=== PATIENT | male | born 1990 | race Caucasian/White ===

== ENCOUNTER 2016-12-07 18:43 | Emergency (ER) | payer OTHER ==
[~2016-12-07] VITALS: Ht 182.8 cm; Wt 127.0 kg
[2016-12-07] MEDS ORDERED: LISINOPRIL40 MG PO (18:59)
== END 2016-12-07 20:18 | disposition home or self-care (01) ==
LOC: ED 18:43
DX: S06.0X0A Concussion without loss of consciousness, initial encounter (principal); S00.03XA Contusion of scalp, initial encounter; R03.0 Elevated blood-pressure reading, without diagnosis of hypertension; W17.89XA Other fall from one level to another, initial encounter; Y93.89 Activity, other specified; Y92.9 Unspecified place or not applicable; Y99.9 Unspecified external cause status

== ENCOUNTER 2019-05-14 13:39 | Emergency (ER) | payer OTHER ==
[~2019-05-14] VITALS: Ht 180.3 cm; Wt 129.3 kg
[~2019-05-14 13:39] MED LIST: LISINOPRIL40 MG PO
[2019-05-14] MEDS ORDERED: NAPROSYN500 MG PO (14:37)
[2019-05-14] MEDS ORDERED: MEDROL DOSEPAK4 MG PO (14:37)
[2019-05-14] MEDS ORDERED: METHOCARBAMOL500 M1 PO (14:37)
== END 2019-05-14 14:45 | disposition home or self-care (01) ==
LOC: ED 13:39
DX: S39.012A Strain of muscle, fascia and tendon of lower back, initial encounter (principal); Z79.899 Other long term (current) drug therapy; X50.1XXA Overexertion from prolonged static or awkward postures, initial encounter; Y93.89 Activity, other specified; Y92.89 Other specified places as the place of occurrence of the external cause; Y99.9 Unspecified external cause status

== ENCOUNTER 2019-07-04 17:17 | Emergency (ER) | payer OTHER ==
[~2019-07-04] VITALS: Ht 182.8 cm; Wt 129.3 kg
[~2019-07-04 17:17] MED LIST changes: +MEDROL DOSEPAK4 MG PO; +METHOCARBAMOL500 M1 PO; +NAPROSYN500 MG PO
== END 2019-07-04 20:15 | disposition home or self-care (01) ==
LOC: ED 17:17
DX: A08.4 Viral intestinal infection, unspecified (principal); I10 Essential (primary) hypertension; Z79.899 Other long term (current) drug therapy

== ENCOUNTER 2019-08-08 12:19 | Emergency (ER) | payer OTHER ==
[~2019-08-08] VITALS: Ht 182.8 cm; Wt 129.3 kg
[2019-08-08] MEDS ORDERED: AUGMENTIN 875-875 MG PO (13:20)
[2019-08-08] MEDS ORDERED: FLONASE ALLERG9.9 ML NAS (13:20)
[2019-08-08] MEDS ORDERED: ALLEGRA ALLERG180 M2 PO (13:20)
== END 2019-08-08 13:22 | disposition home or self-care (01) ==
LOC: ED 12:19
DX: J01.90 Acute sinusitis, unspecified (principal); J02.9 Acute pharyngitis, unspecified; Z79.899 Other long term (current) drug therapy

== ENCOUNTER 2021-01-12 14:12 | Emergency (ER) | payer OTHER ==
[~2021-01-12] VITALS: Ht 182.8 cm; Wt 135.2 kg
[~2021-01-12 14:12] MED LIST changes: +ALLEGRA ALLERG180 M2 PO; +AUGMENTIN 875-875 MG PO; +FLONASE ALLERG9.9 ML NAS
== END 2021-01-12 15:45 | disposition home or self-care (01) ==
LOC: ED 14:12
DX: S61.011A Laceration without foreign body of right thumb without damage to nail, initial encounter (principal); Z79.899 Other long term (current) drug therapy; W45.8XXA Other foreign body or object entering through skin, initial encounter; Y93.89 Activity, other specified; Y92.89 Other specified places as the place of occurrence of the external cause; Y99.8 Other external cause status

== ENCOUNTER 2021-09-06 14:07 | Emergency (ER) | payer OTHER ==
[~2021-09-06] VITALS: Ht 182.8 cm; Wt 129.3 kg
== END 2021-09-06 16:33 | disposition home or self-care (01) ==
LOC: ED 14:07
DX: S00.83XA Contusion of other part of head, initial encounter (principal); Z79.899 Other long term (current) drug therapy; W18.39XA Other fall on same level, initial encounter; Y93.89 Activity, other specified; Y92.89 Other specified places as the place of occurrence of the external cause; Y99.8 Other external cause status

== ENCOUNTER 2021-10-26 10:15 | Emergency (ER) | payer OTHER ==
[~2021-10-26] VITALS: Ht 182.8 cm; Wt 129.3 kg
== END 2021-10-26 12:16 | disposition home or self-care (01) ==
LOC: ED 10:15
DX: S63.256A Unspecified dislocation of right little finger, initial encounter (principal); Z79.899 Other long term (current) drug therapy; W18.39XA Other fall on same level, initial encounter; Y93.89 Activity, other specified; Y92.89 Other specified places as the place of occurrence of the external cause; Y99.8 Other external cause status

== ENCOUNTER 2022-11-09 13:10 | Emergency (ER) | payer OTHER ==
[~2022-11-09] VITALS: Ht 182.8 cm; Wt 126.1 kg
[2022-11-09] MEDS ORDERED: PREDNISONE20 M1 PO (13:33)
[2022-11-09] MEDS ORDERED: TRIAMCINOLONE430 GM TD (13:33)
== END 2022-11-09 13:34 | disposition home or self-care (01) ==
LOC: ED 13:10
DX: L25.9 Unspecified contact dermatitis, unspecified cause (principal); Z79.899 Other long term (current) drug therapy

== ENCOUNTER 2024-08-13 14:00 | Emergency (ER) | payer OTHER ==
[~2024-08-13] VITALS: Ht 182.8 cm; Wt 129.3 kg
[~2024-08-13 14:00] MED LIST changes: +PREDNISONE20 M1 PO; +TRIAMCINOLONE430 GM TD
[2024-08-13] MEDS ORDERED: methylPREDNISolone sod succ 125 MG VIAL IM ONE (14:35)
[2024-08-13] MEDS ORDERED: Ketorolac Tromethamine 30 MG/ML VIAL IM ONE (14:35)
[2024-08-13] MEDS ORDERED: NAPROSYN500 MG PO (15:51)
[2024-08-13] MEDS ORDERED: CYCLOBENZAPRINE5 M3 PO (15:51)
== END 2024-08-13 15:57 | disposition home or self-care (01) ==
LOC: ED 14:00
DX: S39.012A Strain of muscle, fascia and tendon of lower back, initial encounter (principal); F17.200 Nicotine dependence, unspecified, uncomplicated; Z79.899 Other long term (current) drug therapy; X58.XXXA Exposure to other specified factors, initial encounter; Y93.89 Activity, other specified; Y92.89 Other specified places as the place of occurrence of the external cause; Y99.8 Other external cause status